=== PATIENT | male | born 1965 | race African-American/Black ===

== ENCOUNTER 2022-08-03 09:41 | Inpatient (IN) | payer OTHER ==
[2022-08-03 11:38] VITALS: BMI 18.6
[2022-08-03] MEDS ORDERED: IBUPROFEN 400 MG TABLET (FP) PO PRN (17:00)
[2022-08-03] MEDS ORDERED: ACETAMINOPHEN 325 MG TABLET (FP) PO PRN (17:00)
[2022-08-03] MEDS ORDERED: MAG HYDROX/AL HYDROX/SIMETH 30 ML UNIT-DOSE CUP PO PRN (17:00)
[2022-08-03] MEDS ORDERED: MAGNESIUM CITRATE 300 ML BOTTLE PO PRN (17:00)
[2022-08-03] MEDS ORDERED: LOPERAMIDE HCL 2 MG CAPSULE PO PRN (17:00)
[2022-08-03] MEDS ORDERED: guaiFENesin 200 MG/10 ML 10 ML UNIT-DOSE CUPS PO PRN (17:00)
[2022-08-03] MEDS ORDERED: hydrOXYzine PAMOATE 25 MG CAPSULE (FP) PO PRN (17:00)
[2022-08-03] MEDS ORDERED: P-EPHED 60MG/TRIPROLIDI 2.5MG TABLET PO PRN (17:00)
[2022-08-03] MEDS ORDERED: MAGNESIUM HYDROX 2400MG/30ML ORAL SUSPENSION 30 ML CUP PO PRN (17:00)
[2022-08-03] MEDS: amLODIPine BESYLATE 10 MG TABLET (FP) PO SCH (17:06)
[2022-08-03] MEDS: HYDROCHLOROTHIAZIDE 25 MG TABLET (FP) PO SCH (17:06)
[2022-08-03] MEDS ORDERED: TUBERCULIN PPD 5 TU/0.1ML VIAL ID ONE (18:00)
[2022-08-03] MEDS: levETIRAcetam 500 MG TABLET (FP) PO SCH (21:18)
[2022-08-03] MEDS: THIAMINE HCL 100 MG TABLET (FP) PO SCH (21:18)
[2022-08-03] MEDS: MELATONIN 5 MG TABLETS PO SCH (21:18)
[2022-08-04] MEDS: amLODIPine BESYLATE 10 MG TABLET (FP) PO SCH (09:49)
[2022-08-04] MEDS: HYDROCHLOROTHIAZIDE 25 MG TABLET (FP) PO SCH (09:49)
[2022-08-04] MEDS: ESCITALOPRAM OXALATE 10 MG TABLET PO SCH (09:49)
[2022-08-04] MEDS: PRENATAL VITAMINS W/ FOLIC ACID TABLET (FP) PO SCH (09:49)
[2022-08-04] MEDS: ARIPiprazole 5 MG TABLET PO SCH (09:49)
[2022-08-04] MEDS: levETIRAcetam 500 MG TABLET (FP) PO SCH ×2 (09:49→21:17)
[2022-08-04] MEDS: NICOTINE 7 MG/24 HOURS TOPICAL PATCH TD SCH (09:50)
[2022-08-04 11:29] LABS: PH,URINE 5.5 (5.0-8.0); URINE APPEARANCE CLEAR; URINE BILIRUBIN NEGATIVE (NEGATIVE); URINE COLOR YELLOW; URINE GLUCOSE (UA) NEGATIVE (NEGATIVE); URINE KETONE NEGATIVE (NEGATIVE); URINE LEUK ESTERASE NEGATIVE (NEGATIVE); URINE NITRITE NEGATIVE (NEGATIVE); URINE PROTEIN TRACE (NEGATIVE)
[2022-08-04 11:37] LABS: HEMATOCRIT 43.2 % (35.4-49); HEMOGLOBIN 14.1 GM/dL (11.7-16.9); MCH 26.9 pg (25.7-33.7); MCHC 32.6 g/dl (32.0-35.9); MEAN CELL VOLUME 82.7 fl (80-96); MEAN PLT VOLUME 8.4 fl (7.5-11.1); PLATELET COUNT 192 10^3/uL (134-434); RBC 5.23 M/mm3 (4.00-5.60); RDW 14.9 % (11.9-15.9)
[2022-08-04 11:38] LABS: CALCIUM 9.9 mg/dL (8.5-10.1)
[2022-08-04 11:39] LABS: ALBUMIN 3.7 g/dl (3.4-5.0); BLOOD UREA NITROGEN 19.3 mg/dL (7-18)
[2022-08-04 11:42] LABS: CREATININE 1.7 mg/dL (0.55-1.3)
[2022-08-04 11:43] LABS: BILIRUBIN,TOTAL 0.5 mg/dL (0.2-1); TOT PROT 7.7 g/dl (6.4-8.2)
[2022-08-04] MEDS: busPIRone HCL 10 MG TABLET (FP) PO SCH ×2 (13:15→21:17)
[2022-08-04] MEDS: MELATONIN 5 MG TABLETS PO SCH (21:17)
[2022-08-04] MEDS: THIAMINE HCL 100 MG TABLET (FP) PO SCH (21:17)
[2022-08-05] MEDS: busPIRone HCL 10 MG TABLET (FP) PO SCH ×3 (06:18→21:16)
[2022-08-05] MEDS: ESCITALOPRAM OXALATE 10 MG TABLET PO SCH (10:04)
[2022-08-05] MEDS: ARIPiprazole 5 MG TABLET PO SCH (10:04)
[2022-08-05] MEDS: amLODIPine BESYLATE 10 MG TABLET (FP) PO SCH (10:04)
[2022-08-05] MEDS: NICOTINE 7 MG/24 HOURS TOPICAL PATCH TD SCH (10:04)
[2022-08-05] MEDS: PRENATAL VITAMINS W/ FOLIC ACID TABLET (FP) PO SCH (10:04)
[2022-08-05] MEDS: HYDROCHLOROTHIAZIDE 25 MG TABLET (FP) PO SCH (10:04)
[2022-08-05] MEDS: NICOTINE 10 MG CARTRIDGE (INHALER) IH PRN (10:06)
[2022-08-05] MEDS: levETIRAcetam 500 MG TABLET (FP) PO SCH ×2 (10:43→21:16)
[2022-08-05] MEDS: MELATONIN 5 MG TABLETS PO SCH (21:16)
[2022-08-05] MEDS: THIAMINE HCL 100 MG TABLET (FP) PO SCH (21:16)
[2022-08-06] MEDS: busPIRone HCL 10 MG TABLET (FP) PO SCH ×3 (06:42→21:07)
[2022-08-06] MEDS: levETIRAcetam 500 MG TABLET (FP) PO SCH ×2 (09:02→21:07)
[2022-08-06] MEDS: amLODIPine BESYLATE 10 MG TABLET (FP) PO SCH (09:02)
[2022-08-06] MEDS: ESCITALOPRAM OXALATE 10 MG TABLET PO SCH (09:03)
[2022-08-06] MEDS: NICOTINE 7 MG/24 HOURS TOPICAL PATCH TD SCH (09:03)
[2022-08-06] MEDS: PRENATAL VITAMINS W/ FOLIC ACID TABLET (FP) PO SCH (09:03)
[2022-08-06] MEDS: ARIPiprazole 5 MG TABLET PO SCH (09:03)
[2022-08-06] MEDS: HYDROCHLOROTHIAZIDE 25 MG TABLET (FP) PO SCH (09:04)
[2022-08-06] MEDS ORDERED: hydrALAZINE HCL 50 MG TABLET (FP) PO SCH (15:00)
[2022-08-06] MEDS ORDERED: HYDROCHLOROTHIAZIDE 25 MG TABLET (FP) PO SCH (15:30)
[2022-08-06] MEDS ORDERED: amLODIPine BESYLATE 10 MG TABLET (FP) PO SCH (15:30)
[2022-08-06] MEDS: hydrALAZINE HCL 50 MG TABLET (FP) PO SCH ×2 (15:36→21:07)
[2022-08-06] MEDS: MELATONIN 5 MG TABLETS PO SCH (21:07)
[2022-08-06] MEDS: THIAMINE HCL 100 MG TABLET (FP) PO SCH (21:07)
[2022-08-07] MEDS: hydrALAZINE HCL 50 MG TABLET (FP) PO SCH ×3 (06:42→21:05)
[2022-08-07] MEDS: busPIRone HCL 10 MG TABLET (FP) PO SCH ×3 (06:42→21:05)
[2022-08-07] MEDS: ARIPiprazole 5 MG TABLET PO SCH (09:52)
[2022-08-07] MEDS: HYDROCHLOROTHIAZIDE 25 MG TABLET (FP) PO SCH (09:52)
[2022-08-07] MEDS: PRENATAL VITAMINS W/ FOLIC ACID TABLET (FP) PO SCH (09:53)
[2022-08-07] MEDS: ESCITALOPRAM OXALATE 10 MG TABLET PO SCH (09:53)
[2022-08-07] MEDS: amLODIPine BESYLATE 10 MG TABLET (FP) PO SCH (09:53)
[2022-08-07] MEDS: levETIRAcetam 500 MG TABLET (FP) PO SCH ×2 (09:53→21:05)
[2022-08-07] MEDS: NICOTINE 7 MG/24 HOURS TOPICAL PATCH TD SCH (09:53)
[2022-08-07] MEDS: NICOTINE 10 MG CARTRIDGE (INHALER) IH PRN (13:12)
[2022-08-07] MEDS: MELATONIN 5 MG TABLETS PO SCH (21:05)
[2022-08-07] MEDS: THIAMINE HCL 100 MG TABLET (FP) PO SCH (21:05)
[2022-08-08] MEDS: busPIRone HCL 10 MG TABLET (FP) PO SCH ×3 (06:39→21:09)
[2022-08-08] MEDS: hydrALAZINE HCL 50 MG TABLET (FP) PO SCH ×3 (06:39→21:09)
[2022-08-08] MEDS: NICOTINE 7 MG/24 HOURS TOPICAL PATCH TD SCH (10:00)
[2022-08-08] MEDS: ESCITALOPRAM OXALATE 10 MG TABLET PO SCH (10:01)
[2022-08-08] MEDS: HYDROCHLOROTHIAZIDE 25 MG TABLET (FP) PO SCH (10:01)
[2022-08-08] MEDS: levETIRAcetam 500 MG TABLET (FP) PO SCH ×2 (10:01→21:09)
[2022-08-08] MEDS: amLODIPine BESYLATE 10 MG TABLET (FP) PO SCH (10:01)
[2022-08-08] MEDS: ARIPiprazole 5 MG TABLET PO SCH (10:01)
[2022-08-08] MEDS: PRENATAL VITAMINS W/ FOLIC ACID TABLET (FP) PO SCH (10:01)
[2022-08-08] MEDS: MELATONIN 5 MG TABLETS PO SCH (21:09)
[2022-08-08] MEDS: THIAMINE HCL 100 MG TABLET (FP) PO SCH (21:09)
[2022-08-08] MEDS: cloNIDine HCL 0.1 MG TABLET PO PRN (21:09)
[2022-08-09] MEDS: busPIRone HCL 10 MG TABLET (FP) PO SCH ×3 (06:22→21:27)
[2022-08-09] MEDS: hydrALAZINE HCL 50 MG TABLET (FP) PO SCH ×3 (06:22→21:27)
[2022-08-09] MEDS: PRENATAL VITAMINS W/ FOLIC ACID TABLET (FP) PO SCH (09:47)
[2022-08-09] MEDS: ARIPiprazole 5 MG TABLET PO SCH (09:47)
[2022-08-09] MEDS: amLODIPine BESYLATE 10 MG TABLET (FP) PO SCH (09:47)
[2022-08-09] MEDS: HYDROCHLOROTHIAZIDE 25 MG TABLET (FP) PO SCH (09:47)
[2022-08-09] MEDS: ESCITALOPRAM OXALATE 10 MG TABLET PO SCH (09:47)
[2022-08-09] MEDS: levETIRAcetam 500 MG TABLET (FP) PO SCH ×2 (09:47→21:27)
[2022-08-09] MEDS: NICOTINE 7 MG/24 HOURS TOPICAL PATCH TD SCH (09:48)
[2022-08-09] MEDS: cloNIDine HCL 0.1 MG TABLET PO PRN (21:27)
[2022-08-09] MEDS: MELATONIN 5 MG TABLETS PO SCH (21:27)
[2022-08-09] MEDS: THIAMINE HCL 100 MG TABLET (FP) PO SCH (21:27)
[2022-08-10] MEDS: hydrALAZINE HCL 50 MG TABLET (FP) PO SCH ×3 (06:18→21:14)
[2022-08-10] MEDS: busPIRone HCL 10 MG TABLET (FP) PO SCH ×3 (06:18→21:14)
[2022-08-10] MEDS: levETIRAcetam 500 MG TABLET (FP) PO SCH ×2 (09:57→21:14)
[2022-08-10] MEDS: ARIPiprazole 5 MG TABLET PO SCH (09:57)
[2022-08-10] MEDS: amLODIPine BESYLATE 10 MG TABLET (FP) PO SCH (09:57)
[2022-08-10] MEDS: HYDROCHLOROTHIAZIDE 25 MG TABLET (FP) PO SCH (09:57)
[2022-08-10] MEDS: NICOTINE 7 MG/24 HOURS TOPICAL PATCH TD SCH (09:57)
[2022-08-10] MEDS: ESCITALOPRAM OXALATE 10 MG TABLET PO SCH (09:57)
[2022-08-10] MEDS: PRENATAL VITAMINS W/ FOLIC ACID TABLET (FP) PO SCH (09:57)
[2022-08-10] MEDS: THIAMINE HCL 100 MG TABLET (FP) PO SCH (21:14)
[2022-08-10] MEDS: MELATONIN 5 MG TABLETS PO SCH (21:14)
[2022-08-11] MEDS: busPIRone HCL 10 MG TABLET (FP) PO SCH ×3 (06:09→21:11)
[2022-08-11] MEDS: hydrALAZINE HCL 50 MG TABLET (FP) PO SCH ×3 (06:09→21:11)
[2022-08-11] MEDS: NICOTINE 10 MG CARTRIDGE (INHALER) IH PRN (08:59)
[2022-08-11] MEDS: PRENATAL VITAMINS W/ FOLIC ACID TABLET (FP) PO SCH (09:00)
[2022-08-11] MEDS: NICOTINE 7 MG/24 HOURS TOPICAL PATCH TD SCH (09:00)
[2022-08-11] MEDS: ARIPiprazole 5 MG TABLET PO SCH (09:01)
[2022-08-11] MEDS: ESCITALOPRAM OXALATE 10 MG TABLET PO SCH (09:01)
[2022-08-11] MEDS: HYDROCHLOROTHIAZIDE 25 MG TABLET (FP) PO SCH (09:01)
[2022-08-11] MEDS: amLODIPine BESYLATE 10 MG TABLET (FP) PO SCH (09:01)
[2022-08-11] MEDS: levETIRAcetam 500 MG TABLET (FP) PO SCH ×2 (09:01→21:11)
[2022-08-11] MEDS: MELATONIN 5 MG TABLETS PO SCH (21:11)
[2022-08-11] MEDS: THIAMINE HCL 100 MG TABLET (FP) PO SCH (21:11)
[2022-08-12] MEDS: hydrALAZINE HCL 50 MG TABLET (FP) PO SCH ×3 (06:24→21:07)
[2022-08-12] MEDS: busPIRone HCL 10 MG TABLET (FP) PO SCH ×3 (06:24→21:07)
[2022-08-12] MEDS: NICOTINE 10 MG CARTRIDGE (INHALER) IH PRN (08:49)
[2022-08-12] MEDS: ARIPiprazole 5 MG TABLET PO SCH (09:41)
[2022-08-12] MEDS: ESCITALOPRAM OXALATE 10 MG TABLET PO SCH (09:41)
[2022-08-12] MEDS: amLODIPine BESYLATE 10 MG TABLET (FP) PO SCH (09:41)
[2022-08-12] MEDS: HYDROCHLOROTHIAZIDE 25 MG TABLET (FP) PO SCH (09:41)
[2022-08-12] MEDS: PRENATAL VITAMINS W/ FOLIC ACID TABLET (FP) PO SCH (09:41)
[2022-08-12] MEDS: NICOTINE 7 MG/24 HOURS TOPICAL PATCH TD SCH (09:42)
[2022-08-12] MEDS: levETIRAcetam 500 MG TABLET (FP) PO SCH ×2 (09:42→21:08)
[2022-08-12] MEDS ORDERED: cloNIDine HCL 0.1 MG TABLET PO ONE (14:28)
[2022-08-12] MEDS: MELATONIN 5 MG TABLETS PO SCH (21:07)
[2022-08-12] MEDS: THIAMINE HCL 100 MG TABLET (FP) PO SCH (21:07)
[2022-08-13] MEDS: hydrALAZINE HCL 50 MG TABLET (FP) PO SCH ×3 (06:18→21:33)
[2022-08-13] MEDS: busPIRone HCL 10 MG TABLET (FP) PO SCH ×3 (06:18→21:33)
[2022-08-13] MEDS: cloNIDine HCL 0.1 MG TABLET PO PRN ×2 (07:04→21:33)
[2022-08-13] MEDS: ARIPiprazole 5 MG TABLET PO SCH (09:46)
[2022-08-13] MEDS: HYDROCHLOROTHIAZIDE 25 MG TABLET (FP) PO SCH (09:46)
[2022-08-13] MEDS: levETIRAcetam 500 MG TABLET (FP) PO SCH ×2 (09:46→21:33)
[2022-08-13] MEDS: NICOTINE 7 MG/24 HOURS TOPICAL PATCH TD SCH (09:47)
[2022-08-13] MEDS: amLODIPine BESYLATE 10 MG TABLET (FP) PO SCH (09:47)
[2022-08-13] MEDS: PRENATAL VITAMINS W/ FOLIC ACID TABLET (FP) PO SCH (09:47)
[2022-08-13] MEDS: ESCITALOPRAM OXALATE 10 MG TABLET PO SCH (09:47)
[2022-08-13] MEDS: THIAMINE HCL 100 MG TABLET (FP) PO SCH (21:33)
[2022-08-13] MEDS: MELATONIN 5 MG TABLETS PO SCH (21:33)
[2022-08-13] MEDS: NICOTINE 10 MG CARTRIDGE (INHALER) IH PRN (21:34)
[2022-08-14] MEDS: busPIRone HCL 10 MG TABLET (FP) PO SCH ×3 (06:42→21:16)
[2022-08-14] MEDS: hydrALAZINE HCL 50 MG TABLET (FP) PO SCH ×3 (06:43→21:16)
[2022-08-14] MEDS: NICOTINE 7 MG/24 HOURS TOPICAL PATCH TD SCH (10:04)
[2022-08-14] MEDS: ESCITALOPRAM OXALATE 10 MG TABLET PO SCH (10:05)
[2022-08-14] MEDS: amLODIPine BESYLATE 10 MG TABLET (FP) PO SCH (10:05)
[2022-08-14] MEDS: HYDROCHLOROTHIAZIDE 25 MG TABLET (FP) PO SCH (10:05)
[2022-08-14] MEDS: NICOTINE 10 MG CARTRIDGE (INHALER) IH PRN (10:05)
[2022-08-14] MEDS: ARIPiprazole 5 MG TABLET PO SCH (10:05)
[2022-08-14] MEDS: levETIRAcetam 500 MG TABLET (FP) PO SCH ×2 (10:05→21:16)
[2022-08-14] MEDS: PRENATAL VITAMINS W/ FOLIC ACID TABLET (FP) PO SCH (10:06)
[2022-08-14] MEDS: THIAMINE HCL 100 MG TABLET (FP) PO SCH (21:15)
[2022-08-14] MEDS: MELATONIN 5 MG TABLETS PO SCH (21:15)
[2022-08-15] MEDS: hydrALAZINE HCL 50 MG TABLET (FP) PO SCH ×3 (06:28→21:04)
[2022-08-15] MEDS: busPIRone HCL 10 MG TABLET (FP) PO SCH ×3 (06:28→21:04)
[2022-08-15] MEDS: cloNIDine HCL 0.1 MG TABLET PO PRN (06:28)
[2022-08-15] MEDS: amLODIPine BESYLATE 10 MG TABLET (FP) PO SCH (09:56)
[2022-08-15] MEDS: levETIRAcetam 500 MG TABLET (FP) PO SCH ×2 (09:56→21:04)
[2022-08-15] MEDS: HYDROCHLOROTHIAZIDE 25 MG TABLET (FP) PO SCH (09:56)
[2022-08-15] MEDS: PRENATAL VITAMINS W/ FOLIC ACID TABLET (FP) PO SCH (09:56)
[2022-08-15] MEDS: ARIPiprazole 5 MG TABLET PO SCH (09:56)
[2022-08-15] MEDS: ESCITALOPRAM OXALATE 10 MG TABLET PO SCH (09:56)
[2022-08-15] MEDS: NICOTINE 7 MG/24 HOURS TOPICAL PATCH TD SCH (09:57)
[2022-08-15] MEDS: NICOTINE 10 MG CARTRIDGE (INHALER) IH PRN (09:58)
[2022-08-15] MEDS: THIAMINE HCL 100 MG TABLET (FP) PO SCH (21:04)
[2022-08-15] MEDS: MELATONIN 5 MG TABLETS PO SCH (21:04)
[2022-08-16 06:52] VITALS: RESP 16; TEMP 97.7
[2022-08-16] MEDS: busPIRone HCL 10 MG TABLET (FP) PO SCH (06:55)
[2022-08-16] MEDS: hydrALAZINE HCL 50 MG TABLET (FP) PO SCH (06:55)
[2022-08-16 08:47] VITALS: BP 169/94; PULSE 87
[2022-08-16] MEDS: ESCITALOPRAM OXALATE 10 MG TABLET PO SCH (09:23)
[2022-08-16] MEDS: amLODIPine BESYLATE 10 MG TABLET (FP) PO SCH (09:23)
[2022-08-16] MEDS: ARIPiprazole 5 MG TABLET PO SCH (09:23)
[2022-08-16] MEDS: HYDROCHLOROTHIAZIDE 25 MG TABLET (FP) PO SCH (09:23)
[2022-08-16] MEDS: levETIRAcetam 500 MG TABLET (FP) PO SCH (09:23)
[2022-08-16] MEDS: NICOTINE 7 MG/24 HOURS TOPICAL PATCH TD SCH (09:24)
[2022-08-16] MEDS: PRENATAL VITAMINS W/ FOLIC ACID TABLET (FP) PO SCH (09:24)
== END 2022-08-16 09:28 | disposition home or self-care (01) | DRG 772 ==
LOC: SUATTDRO 09:41 → YASAS 09:41 → Y3E 16:20
PROVIDERS: ADMIT Allergy & Immunology; ATTEND Surgery
PROC: HZ42ZZZ Group Counseling for Substance Abuse Treatment, Cognitive-Behavioral (ICD-10-PCS; principal; 2022-08-03)
DX: F14.20 Cocaine dependence, uncomplicated (principal); F12.20 Cannabis dependence, uncomplicated; F17.210 Nicotine dependence, cigarettes, uncomplicated; F19.280 Other psychoactive substance dependence with psychoactive substance-induced anxiety disorder; F19.251 Other psychoactive substance dependence with psychoactive substance-induced psychotic disorder with hallucinations; F19.24 Other psychoactive substance dependence with psychoactive substance-induced mood disorder; F20.0 Paranoid schizophrenia; F41.9 Anxiety disorder, unspecified; F32.A Depression, unspecified; G40.909 Epilepsy, unspecified, not intractable, without status epilepticus; I10 Essential (primary) hypertension; M16.12 Unilateral primary osteoarthritis, left hip; Z99.89 Dependence on other enabling machines and devices; Z86.73 Personal history of transient ischemic attack (TIA), and cerebral infarction without residual deficits
CPT/HCPCS: 36415; 80053; 80177; 81003; 85027; 86780; 86803; 93005; 93010; C9803-CS; U0003; U0005